=== PATIENT | female | born 1995 | race African-American/Black ===

== ENCOUNTER 2016-11-20 10:08 | Observation (INO) | payer MEDICAID | END 2016-11-20 11:05 | disposition left against medical advice (07) | LOC: L&D 10:08 | PROVIDERS: ADMIT Obstetrics & Gynecology; ATTEND Obstetrics & Gynecology | DX: O62.9 Abnormality of forces of labor, unspecified (principal); Z3A.39 39 weeks gestation of pregnancy | CPT/HCPCS: 99281; G0378 ==